=== PATIENT | male | born 1980 | race Caucasian/White ===

== ENCOUNTER 2016-09-11 17:59 | Emergency (ER) | payer MEDICAID ==
[~2016-09-11] VITALS: Ht 167.6 cm; Wt 154.0 kg
[2016-09-12 00:33] VITALS: BP 133/76
== END 2016-09-12 00:49 | disposition home or self-care (01) ==
LOC: ER 21:24
DX: G51.0 Bell's palsy (principal); I10 Essential (primary) hypertension
CPT/HCPCS: 99283